=== PATIENT | female | born 1940 | race Caucasian/White ===

== ENCOUNTER → 2017-10-21 | Outpatient (POV) | payer MEDICARE, OTHER, SELFPAY | PROVIDERS: Visit Provider Podiatrist ==

== ENCOUNTER → 2017-11-25 10:51 | Outpatient (POV) | payer MEDICARE, OTHER, SELFPAY | PROVIDERS: PCP Internal Medicine Adolescent Medicine; Visit Provider Podiatrist | DX: Z00.00 Encounter for general adult medical examination without abnormal findings (principal) ==

== ENCOUNTER → 2017-12-09 10:41 | Outpatient (POV) | payer MEDICARE, OTHER, SELFPAY | PROVIDERS: Visit Provider Podiatrist | DX: Z00.00 Encounter for general adult medical examination without abnormal findings (principal) ==

== ENCOUNTER → 2017-12-23 09:10 | Outpatient (POV) | payer MEDICARE, OTHER, SELFPAY | PROVIDERS: PCP Internal Medicine Adolescent Medicine; Visit Provider Podiatrist | DX: Z00.00 Encounter for general adult medical examination without abnormal findings (principal) ==

== ENCOUNTER → 2018-06-09 09:40 | Outpatient (CLI) | payer MEDICARE, OTHER, SELFPAY ==
--- NOTE | 2018-06-09 09:44 | MM_ITS ---
MM Dig screening mamm BI w/CAD ORDERING PHYSICIAN : Juan Rodriguez MD PATIENT AGE: 77 years GENDER: Female COMPARISON: March 2017, January 2016, February 2011 INDICATION: ITS.REASON: SCREENING no hormones. No new complaints. Noncontributory family history TECHNIQUE: Standard CC and MLO images were obtained. R2 CAD reviewed. FINDINGS: Low-density breast with generalized fatty replacement. Minimal residual fibroglandular elements bilateral. Prior films confirm relative stability with no dominant mass nor suspicious calcifications in either breast. Only very minimal Early vascular calcifications on right. IMPRESSION: Stable negative bilateral mammogram. Bilateral follow-up one year recommended BI-RADS Category: 1 Negative RECOMMENDED FOLLOW-UP: 1YR 1 YEAR FOLLOW-UP (A letter has been sent to the patient regarding results of the study.)
--- NOTE | 2018-06-09 09:44 | XR_ITS ---
XR DEXA axial skeleton COMPARISON: None HISTORY: Postmenopausal TECHNIQUE: DEXA scanning lumbar spine and bilateral hips and right radius and ulna FINDINGS: Lumbar spine: There is BMD L1-L4 is 1.394 g/sq cm and the T score is 1.8. 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 Impression: Normal values for lumbar spine left hip and right radius and ulna, consider follow-up study in approximately 2 years IMPRESSION:
== END ==
PROVIDERS: PCP Internal Medicine Adolescent Medicine; Visit Provider Internal Medicine Adolescent Medicine
DX: Z12.31 Encounter for screening mammogram for malignant neoplasm of breast (principal); Z13.820 Encounter for screening for osteoporosis; Z78.0 Asymptomatic menopausal state
CPT/HCPCS: 77067; 77080

== ENCOUNTER → 2018-10-20 10:59 | Outpatient (CLI) | payer MEDICARE, OTHER, SELFPAY ==
--- NOTE | 2018-10-20 11:03 | XR_ITS ---
XR chest 2V HISTORY: ITS.REASON: EXPOSURE TO TB ORDERING PHYSICIAN: Juan Rodriguez MD PATIENT AGE: 78 years COMPARISON: None FINDINGS: The cardiomediastinal silhouette and pulmonary vascularity are within normal limits. The lungs are clear without infiltrates, suspicious nodules, or pleural effusions. No radiographic evidence of active tuberculosis No acute bony abnormalities. IMPRESSION: Negative chest, no acute finding
== END ==
PROVIDERS: PCP Internal Medicine Adolescent Medicine; Visit Provider Internal Medicine Adolescent Medicine
DX: Z20.1 Contact with and (suspected) exposure to tuberculosis (principal)
CPT/HCPCS: 71046

== ENCOUNTER → 2019-04-12 10:03 | Outpatient (CLI) | payer MEDICARE, BC, SELFPAY ==
--- NOTE | 2019-04-12 10:16 | XR_ITS ---
XR knee RT 3V HISTORY: Knee pain ITS.REASON: KNEE ARTHROPATHY ORDERING PHYSICIAN: Emilia Multani APRN PATIENT AGE: 78 years COMPARISON: None FINDINGS: There are mild osteoarthritic changes involving all 3 compartments with slight decrease in the joint space and osteophyte formation. No fracture or dislocation. No lytic or blastic change. 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
== END ==
PROVIDERS: PCP Nurse Practitioner Family; Visit Provider Nurse Practitioner Family
DX: M17.10 Unilateral primary osteoarthritis, unspecified knee (principal)
CPT/HCPCS: 73562

== ENCOUNTER → 2019-10-26 10:13 | Outpatient (CLI) | payer MEDICARE, BC, SELFPAY ==
--- NOTE | 2019-10-26 10:15 | MM_ITS ---
PROCEDURE: MM DIG SCREENING MAMM BI W/CAD Patient Age:79Y CLINICAL INDICATION: SCREENING 79-year-old screening mammogram. No hormones but no new complaints-hysterectomy age 40. Family history noncontributory. COMPARISON: [facility] DIGITAL MAMM-SCREEN BILATERAL from 11/23/2012 [facility] DIG MAMM-SCREEN TENISHA from 06/14/2014 [facility] DIG MAMM-SCREEN TENISHA from 02/05/2016 [facility] DIG MAMM-SCREEN TENISHA W/CAD from 03/14/2017 [facility] MM Dig screening mamm BI w/CAD from 06/09/2018 TECHNIQUE: Standard CC and MLO images were obtained. R2 CAD reviewed. FINDINGS: low-density breast with diffuse fatty replacement.. No dominant or suspicious mass. No architectural distortion no suspicious calcification. Routine follow-up adequate IMPRESSION: Stable bilateral mammogram. No areas of concern either breast Follow-up 1 year recommended Low-density breast with diffuse fatty replacement. BI-RAD Category: 1 Negative FOLLOW-UP: 1YR 1 Year Follow-up the the the (A letter has been sent to the patient regarding results of the study.) Dictated by: Alhaji Silva MD 10/26/2019 13:47 Electronically signed by Alhaji Silva MD in [place] 10/26/2019 13:47
== END ==
PROVIDERS: PCP Nurse Practitioner Family; Visit Provider Internal Medicine Adolescent Medicine
DX: Z12.31 Encounter for screening mammogram for malignant neoplasm of breast (principal)
CPT/HCPCS: 77067

== ENCOUNTER → 2021-02-18 07:52 | Outpatient (CLI) | payer MEDICARE, BC, SELFPAY ==
--- NOTE | 2021-02-18 08:01 | MM_ITS ---
PROCEDURE: MM DIG SCREENING MAMM BI W/CAD Digital Breast Tomosynthesis Included CLINICAL INDICATION: SCREENING There is no personal or family history of breast cancer. COMPARISON: [facility] MM Dig screening mamm BI w/CAD from 06/09/2018 [facility] MM DIG SCREENING MAMM BI W/CAD from 10/26/2019 TECHNIQUE: Standard CC and MLO images and 3D Tomosynthesis was obtained. R2 CAD reviewed. FINDINGS: Mild scattered fibroglandular densities are seen throughout both breasts. There are CAD markings of both breasts with reviewed all appear to be secondary to vascular calcifications. There is a mole marker right breast. There are few benign-appearing microcalcifications in each breast. There is no suspicious lesion in either breast and no suspicious microcalcifications IMPRESSION: Fibrofatty parenchyma with no suspicious lesions seen BI-RAD Category: 2 Benign Finding(s) FOLLOW-UP: 1YR 1 Year Follow-up (A letter has been sent to the patient regarding results of the study.) Dictated by: Dr. Los Robb MD 02/20/2021 10:57 Dr. Los Robb MD in [place] 02/20/2021 10:57
== END ==
PROVIDERS: PCP Internal Medicine Adolescent Medicine; Visit Provider Nurse Practitioner Family
DX: Z12.31 Encounter for screening mammogram for malignant neoplasm of breast (principal)
CPT/HCPCS: 77063; 77067

== ENCOUNTER → 2021-12-22 13:02 | Outpatient (POV) | payer MEDICARE, BC, SELFPAY | PROVIDERS: Visit Provider Dermatology | DX: Z00.00 Encounter for general adult medical examination without abnormal findings (principal) ==

== ENCOUNTER 2022-01-18 10:22 | Emergency (ER) | payer MEDICARE, BC, SELFPAY ==
[2022-01-18 11:46] VITALS: BP 144/78; PULSE 63; RESP 16; TEMP 36.4; O2SAT 95; BMI 39.9
--- NOTE | 2022-01-18 12:28 | HMH.EDUTC ---
[facility] Clinical Impression: Strep throat Disposition: Home, Self-Care Condition on Discharge: Good Instructions: Strep Throat, DI for Strep Throat Additional Instructions: Drink plenty of fluids. Take tylenol or ibuprofen for pain or fever. Take the medications as directed. Follow up with your regular doctor. GO TO THE ER FOR ANY WORSENING SYMPTOMS Throw your tooth brush away and get a new one. Prescriptions: Amoxicillin [Amoxicillin 500mg Tab] 500 mg PO TID 10 Days #30 tab Transmission Status: Received by [facility] Benzonatate [Benzonatate 100mg cap] 100 mg PO TIDP PRN #30 cap PRN Reason: Cough Transmission Status: Received by [facility] methylPREDNISolone [Medrol] 4 mg PO DIRECTED 6 Days #21 packet Transmission Status: Received by [facility] Referrals: Juan Rodriguez MD [Primary Care Provider] - Time of Disposition: 12:30 Medical Decision Making - Medical Records Medical records reviewed: No: I reviewed the patient's medical records. - Sánchez Inquiry Pt receiving controlled substance: No Vital Signs: 01/18/22 11:46 01/18/22 12:46 Temperature 97.6 F 97.6 F Temperature Source Oral Pulse Rate 63 Pulse Rate [Right] 63 Respiratory Rate 16 16 Blood Pressure 144/78 H Blood Pressure [Right Arm] 144/78 H Blood Pressure Mean [Right Arm] 100 02 Sat by Pulse Oximetry 95 - Lab Data Lab results reviewed: Yes: I reviewed the patient's lab results. Lab Results 01/18/22 11:34: Strep Scn [facility] Positive A 01/18/22 12:32: Chlamy pneumoniae PCR Not detected, Adenovirus (PCR) Not detected, B. pertussis DNA (PCR) Not detected, Coronavirus OC43 (PCR) Not detected, Coronavirus HKU1 (PCR) Not detected, Coronavirus 229E (PCR) Not detected, SARS-CoV-2 (PCR) Not detected, Coronavirus NL63 (PCR) Not detected, Human Metapneumovir PCR Not detected, Influenza A (H1) PCR Not detected, Influ A (H1N1/09) PCR Not detected, Influenza A (H3) PCR Not detected, Influenza Type A (PCR) Not detected, Influenza Type B (PCR) Not detected, M. pneumoniae (PCR) Not detected, Parainfluenza 1 (PCR) Not detected, Parainfluenza 2 (PCR) Not detected, Parainfluenza 3 (PCR) Not detected, Parainfluenza 4 (PCR) Not detected, RSV (PCR) Not detected, Entero/Rhino (PCR) Not detected [facility] [place] - General Stated complaint: cough,congested Time Seen by Provider: 01/18/22 11:50 Mode of Arrival: Ambulatory Source of Information: Patient Limitations: No Limitations Description of Symptoms (Recalled from Triage Doc. by RN): pt c/o a sore throat and productive cough x3 days. HEENT Symptoms (Recalled from RN notes): Yes Resp Symptoms (Recalled from RN notes): Yes Skin Symptoms (Recalled from RN notes): No MS Symptoms (Recalled from RN notes): No Functional Status (Recalled from RN notes): wnl - History of Present Illness Provider Complaint: She c/o having a cough and feeling bad for the past 3 days. - Related Data Home Medications Medication Instructions Recorded Confirmed celecoxib 200 mg capsule 200 mg PO DAILY 90 Days cap 12/13/17 10/30/19 losartan 100 mg tablet 100 mg PO QDAY 12/13/17 10/30/19 omeprazole 20 mg capsule,delayed 20 mg PO ONCE 12/13/17 10/30/19 release simvastatin 40 mg tablet 40 mg PO QAM 12/13/17 10/30/19 atenoloL [Atenolol 50mg Tab] 50 mg PO BID 10/30/19 10/30/19 Previous Rx's Medication Instructions Recorded Azithromycin [Z-Fortunato 250mg Tab*] 250 mg PO UD DOSE PK #6 tab 10/30/19 guaiFENesin [Mucinex 600mg tablet] 1 - 2 tab PO BIDP PRN #30 10/30/19 tab.er.12h predniSONE [Prednisone 20mg 20 mg PO BID 4 Days #8 tab 10/30/19 Tab] Albuterol Sulfate [Albuterol HFA 1 - 2 puffs IH Q4-6H PRN #1 inh 11/01/19 Inhaler] Fluticasone Propionate [Flonase 1 - 2 spr NS DAILY #1 bottle 11/01/19 50mcg nasal spray 16gm] Amoxicillin [Amoxicillin 500mg Tab] 500 mg PO TID 10 Days #30 tab 01/18/22 Benzonatate [Benzonatate 100mg 100 mg PO TIDP PRN #3
[2022-01-18 12:46] VITALS: BP 144/78; PULSE 63; RESP 16; TEMP 36.4
[2022-01-18 13:11] LABS: Adenovirus,PCR Not Detected (NotDetected); Bordetella Pertussis Not Detected (NotDetected); Chlamydophila Pneumoniae, PCR Not Detected (NotDetected); Coronavirus 19, PCR Not Detected (NotDetected); Coronavirus 229E Not Detected (NotDetected); Coronavirus NL63 Not Detected (NotDetected); Coronavirus OC43 Not Detected (NotDetected); Coronovirus HKU1,PCR Not Detected (NotDetected); Human Metapneumovirus Not Detected (NotDetected); Influenza A, PCR Not Detected (NotDetected); Influenza AH1, 2009 Not Detected (NotDetected); Influenza AH1, PCR Not Detected (NotDetected); Influenza AH3,PCR Not Detected (NotDetected); Influenza B, PCR Not Detected (NotDetected); Mycoplasma Pneumoniae, PCR Not Detected (NotDetected); Parainfluenza 1, PCR Not Detected (NotDetected); Parainfluenza 2, PCR Not Detected (NotDetected); Parainfluenza 3, PCR Not Detected (NotDetected); Parainfluenza 4, PCR Not Detected (NotDetected); Respiratory Syncytial Virus Not Detected (NotDetected); Rhinovirus/Enterovirus Not Detected (NotDetected)
[2022-01-18 19:05] LABS: UTC Strep Screen (Rapid) Positive (Negative)
== END 2022-01-18 12:47 | disposition home or self-care (01) ==
PROVIDERS: Emergency Provider Nurse Practitioner Family; PCP Internal Medicine Adolescent Medicine
DX: J02.0 Streptococcal pharyngitis (principal); K21.9 Gastro-esophageal reflux disease without esophagitis; M19.90 Unspecified osteoarthritis, unspecified site; G62.9 Polyneuropathy, unspecified; Z20.822 Contact with and (suspected) exposure to COVID-19; Z79.51 Long term (current) use of inhaled steroids; Z79.52 Long term (current) use of systemic steroids; Z79.899 Other long term (current) drug therapy; Z91.040 Latex allergy status; Z88.8 Allergy status to other drugs, medicaments and biological substances; Z82.49 Family history of ischemic heart disease and other diseases of the circulatory system; Z80.9 Family history of malignant neoplasm, unspecified; Z83.438 Family history of other disorder of lipoprotein metabolism and other lipidemia
CPT/HCPCS: 87581; 87632; 87798; 87880; 99213; C9803; G0463; U0003; U0005

== ENCOUNTER → 2022-03-16 14:03 | Outpatient (POV) | payer MEDICARE, BC, SELFPAY | PROVIDERS: Visit Provider Dermatology | DX: Z00.00 Encounter for general adult medical examination without abnormal findings (principal) ==

== ENCOUNTER 2023-07-15 09:32 | Emergency (ER) | payer MEDICARE, BC, SELFPAY ==
[2023-07-15 09:33] VITALS: BP 142/93; PULSE 77; RESP 18; TEMP 37.3; O2SAT 96; BMI 38.2
--- NOTE | 2023-07-15 09:53 | EXP.UTC ---
Discharge Plan Disposition Patient Disposition: Home, Self-Care Condition: Good Prescriptions Prescriptions: New benzonatate 100 mg capsule 100 mg PO TID PRN (Reason: cough) Qty: 30 0RF azithromycin [Zithromax Z-Fortunato] 250 mg tablet See Rx Instructions .ROUTE .COMPLEX 5 Days Qty: 6 0RF Rx Instructions: For 250 mg dose pack: take 500 mg today (day 1), then 250 mg for 4 days (days 2-5) No Action celecoxib 200 mg capsule 200 mg PO DAILY 90 Days Patient Comments: losartan 100 mg tablet 100 mg PO QDAY simvastatin 40 mg tablet 40 mg PO QAM omeprazole 20 mg capsule,delayed release(DR/EC) 20 mg PO ONCE albuterol sulfate 18 GM HFA aerosol inhaler 1 - 2 puffs IH Q4-6H PRN (Reason: Shortness Of Breath Or Wheezing) Qty: 1 0RF fluticasone propionate 120 SPR/BOT bottle 1 - 2 spr NS DAILY Qty: 1 0RF Rx Instructions: each nostril daily atenolol 50 MG tablet 50 mg PO BID azithromycin 250 MG tablet 250 mg PO UD DOSE PK Qty: 6 0RF Rx Instructions: Take two (2) tablets today, then one (1) tablet days #2 thru #5 prednisone 20 MG tablet 20 mg PO BID 4 Days Qty: 8 0RF guaifenesin 600 MG tablet extended release 12hr 1 - 2 tab PO BIDP PRN (Reason: Congestion) Qty: 30 0RF amoxicillin 500 MG tablet 500 mg PO TID 10 Days Qty: 30 0RF benzonatate 100 MG capsule 100 mg PO TIDP PRN (Reason: Cough) Qty: 30 0RF methylprednisolone 4 MG tablets,dose pack 4 mg PO DIRECTED 6 Days Qty: 21 0RF Referrals Follow up/Referrals: Juan Rodriguez MD [Primary Care Provider] - See instructions Activity Restrictions/Add. Instructions Additional Instructions/Restrictions: *Monitor Temp, Over the counter Motrin or Tylenol as directed/as needed Tylenol every 4 hours and Motrin every 6 hours (as long as your family doctor has told you that you can take it) for fever or pain. and straight to ER if unable to lower temp less than 101.0 after medication given *Warm salt water gargles may help to soothe the throat *Throat Lozenges? *Warm fluids like tea with honey may help to soothe the throat? *Sleep elevated *Humidifier/Vaporizer *Flonase 2 sprays in each nostril daily but be aware that it may take 2-3 days before you notice improvement Follow up IMMEDIATELY for new or worsening symptoms or no Noticeable improvement over the next 48-72 hours. 911 for difficulty breathing or swallowing You were tested for today for COVID19 your test result should be back in the next 24-48 hours, you may check your results on the [facility] they will be on there when they are complete Clinical Impressions Clinical Impression: Sinusitis Qualifiers: Sinusitis location: unspecified location Chronicity: unspecified Qualified Code(s): J32.9 - Chronic sinusitis, unspecified Instructions Patient Instructions: Sinusitis, Sinus Headache Discharge ED Provider: Caro Elias [facility] [place] HPI General Stated complaint: congestion, sore throat Mode of Arrival: Ambulatory Source of Information: Patient Limitations: No Limitations Time Seen by Provider: 07/15/23 09:54 Description of Symptoms (Recalled from Triage Doc. by RN): Patient reports being stopped up, cough and fever since yesterday. HEENT Symptoms (Recalled from RN notes): Yes Resp Symptoms (Recalled from RN notes): No Skin Symptoms (Recalled from RN notes): No MS Symptoms (Recalled from RN notes): No Functional Status (Recalled from RN notes): wnl History of Present Illness Provider Complaint: Patient states that she has been having issues with her sinuses on and off States that yesterday she started with worsening of sinus pressure, cough, scratchy throat and felt like she may have had a fever last night but not sure Related Data Home Medications Medication Instructions Recorded Confirmed celecoxib 200 mg capsule 200 mg PO DAILY ARTHRITIS 90 days 12/13/17
[2023-07-15 10:11] VITALS: BP 142/93; PULSE 77; RESP 18; TEMP 37.3; O2SAT 96
== END 2023-07-15 10:12 | disposition home or self-care (01) ==
PROVIDERS: Emergency Provider Nurse Practitioner; PCP Internal Medicine Adolescent Medicine
DX: U07.1 COVID-19 (principal); J01.90 Acute sinusitis, unspecified
CPT/HCPCS: 99212; 99214; G0463

== ENCOUNTER 2023-08-14 10:48 | Emergency (ER) | payer MEDICARE, BC, SELFPAY ==
[2023-08-14 10:58] VITALS: BP 106/87; PULSE 61; RESP 16; TEMP 36.8; O2SAT 96; BMI 38.2
[2023-08-14 11:01] VITALS: BP 157/71; PULSE 59; O2SAT 95
[2023-08-14 11:31] VITALS: BP 145/69; PULSE 53; O2SAT 95
--- NOTE | 2023-08-14 11:44 | PC.NURSE ---
Dr. Seth at [facility] for pt eval
--- NOTE | 2023-08-14 11:47 | CT_ITS ---
PROCEDURE INFORMATION: Exam: CT Maxillofacial Without Contrast Exam date and time: 08/14/2023 12:19 PM Age: 83 years old Clinical indication: Injury or trauma; Fall; Blunt trauma (contusions or hematomas); Orbit/periorbital; Left; Additional info: Fall 08/12 TECHNIQUE: Imaging protocol: Computed tomography of the face without contrast. Radiation optimization: All CT scans at this facility use at least one of these dose optimization techniques: automated exposure control; mA and/or kV adjustment per patient size (includes targeted exams where dose is matched to clinical indication); or iterative reconstruction. REPORTING DATA: Count of CT and Cardiac NM exams in prior 12 months: This patient has received 0 known CTs and 0 known cardiac nuclear medicine studies in the 12 months prior to the current study. COMPARISON: CT HEAD/BRAIN WO CON 08/14/2023 12:16 PM FINDINGS: Orbital cavities: Orbits are normal. Globes are unremarkable. Bones/joints: Asymmetric osteoarthritic changes are seen at the left temporomandibular joint. There is no evidence of acute fracture. Paranasal sinuses: Normal. No air-fluid levels. Soft tissues: There is left periorbital soft tissue swelling. IMPRESSION: No evidence of acute fracture.
--- NOTE | 2023-08-14 11:47 | CT_ITS ---
PROCEDURE INFORMATION: Exam: CT Head Without Contrast Exam date and time: 08/14/2023 12:16 PM Age: 83 years old Clinical indication: Injury or trauma; Fall; Blunt trauma (contusions or hematomas); Consciousness not specified; Additional info: Fall 08/12 TECHNIQUE: Imaging protocol: Computed tomography of the head without contrast. Radiation optimization: All CT scans at this facility use at least one of these dose optimization techniques: automated exposure control; mA and/or kV adjustment per patient size (includes targeted exams where dose is matched to clinical indication); or iterative reconstruction. REPORTING DATA: Count of CT and Cardiac NM exams in prior 12 months: This patient has received 0 known CTs and 0 known cardiac nuclear medicine studies in the 12 months prior to the current study. COMPARISON: No relevant prior studies available. FINDINGS: Brain: There is mild small vessel disease. There is no evidence of acute parenchymal hemorrhage, extra-axial collection, or acute infarction. There is no mass effect, midline shift, or downward herniation. Cerebral ventricles: No ventriculomegaly. Paranasal sinuses: Visualized sinuses are unremarkable. No fluid levels. Mastoid air cells: Visualized mastoid air cells are well aerated. Bones/joints: Unremarkable. No acute fracture. Soft tissues: There is left periorbital soft tissue swelling. IMPRESSION: Mild small vessel disease. No evidence of acute intracranial process.
[2023-08-14 12:01] VITALS: BP 165/70; PULSE 51; O2SAT 95
--- NOTE | 2023-08-14 12:02 | HMH.EDGENADL ---
Discharge Plan Disposition Patient Disposition: Home, Self-Care Prescriptions Prescriptions: No Action celecoxib 200 mg capsule 200 mg PO DAILY 90 Days Patient Comments: losartan 100 mg tablet 100 mg PO QDAY simvastatin 40 mg tablet 40 mg PO QAM omeprazole 20 mg capsule,delayed release(DR/EC) 20 mg PO ONCE albuterol sulfate 18 GM HFA aerosol inhaler 1 - 2 puffs IH Q4-6H PRN (Reason: Shortness Of Breath Or Wheezing) Qty: 1 0RF fluticasone propionate 120 SPR/BOT bottle 1 - 2 spr NS DAILY Qty: 1 0RF Rx Instructions: each nostril daily atenolol 50 MG tablet 50 mg PO BID azithromycin 250 MG tablet 250 mg PO UD DOSE PK Qty: 6 0RF Rx Instructions: Take two (2) tablets today, then one (1) tablet days #2 thru #5 prednisone 20 MG tablet 20 mg PO BID 4 Days Qty: 8 0RF guaifenesin 600 MG tablet extended release 12hr 1 - 2 tab PO BIDP PRN (Reason: Congestion) Qty: 30 0RF amoxicillin 500 MG tablet 500 mg PO TID 10 Days Qty: 30 0RF benzonatate 100 MG capsule 100 mg PO TIDP PRN (Reason: Cough) Qty: 30 0RF methylprednisolone 4 MG tablets,dose pack 4 mg PO DIRECTED 6 Days Qty: 21 0RF benzonatate 100 mg capsule 100 mg PO TID PRN (Reason: cough) Qty: 30 0RF azithromycin [Zithromax Z-Fortunato] 250 mg tablet See Rx Instructions .ROUTE .COMPLEX 5 Days Qty: 6 0RF Rx Instructions: For 250 mg dose pack: take 500 mg today (day 1), then 250 mg for 4 days (days 2-5) Referrals Follow up/Referrals: Juan Rodriguez MD [Primary Care Provider] - See instructions Activity Restrictions/Add. Instructions Additional Instructions/Restrictions: Call your family doctor to establish care for this visit to the emergency department and schedule follow-up within 48 hours to ensure improvement. If you have any worsening of your condition or any other concerning signs or symptoms, return to the emergency department or your primary care doctor for further evaluation. Clinical Impressions Clinical Impression: Periorbital ecchymosis of left eye, Hematoma of frontal scalp Discharge ED Provider: Chauncey Seth General Adult HPI General Chief complaint: Fall Stated complaint: AO 08/12 fall blackeye Time Seen by Provider: 08/14/23 10:57 Mode of Arrival: Ambulatory Source of Information: Patient Limitations: No Limitations Description of Symptoms (Recalled from ER Triage Doc. by RN): 83 yo F presents to ED with c/o fall. pt had fall tuesday morning. pt states that she was getting out bed and slipped and fell hitting her face. pt reports - LOC. pt does take asa81 mg daily. no neck pain, stiffness. pt reports brusing getting worse. History of Present Illness HPI narrative: 83-year-old female with history of hypertension, hyperlipidemia, chronic bronchitis presenting with fall. Patient fell 1 day prior to arrival 08/13 at 2 AM after stepping out of bed and slipping on the hardwood floor. Struck her face. No loss of consciousness. Patient had a hematoma above her left eyebrow, today, has ecchymoses around her left eye. No vision changes and patient able to open eye, but concerned about the bruising. Denies any other trauma, neurologic deficits. Related Data Home Medications Medication Instructions Recorded Confirmed celecoxib 200 mg capsule 200 mg PO DAILY ARTHRITIS 90 days 12/13/17 10/30/19 losartan 100 mg tablet 100 mg PO QDAY Hypertension 12/13/17 10/30/19 omeprazole 20 mg capsule,delayed 20 mg PO ONCE GERD 12/13/17 10/30/19 release simvastatin 40 mg tablet 40 mg PO QAM Cholesterol 12/13/17 10/30/19 atenolol 50 mg tablet 50 mg PO BID Hypertension 10/30/19 10/30/19 Previous Rx's Medication Instructions Recorded azithromycin 250 mg tablet 250 mg PO UD DOSE PK #6 tabs 10/30/19 guaifenesin 600 mg tablet, 1 - 2 tab PO BIDP PRN Congestion 10/30/19 extended release 12 hr ##30 prednisone 20 mg tablet 20 mg PO BID 4 days #8 tabs 10/30/19 albuterol s
--- NOTE | 2023-08-14 12:13 | PC.NURSE ---
Pt gone to RAD via stretcher
--- NOTE | 2023-08-14 12:22 | PC.NURSE ---
Pt returned from RAD
--- NOTE | 2023-08-14 12:36 | PC.NURSE ---
Rounded on pt. Pt provided with warm blanket. No other needs voiced.
[2023-08-14 12:48] VITALS: BP 150/77; PULSE 60; RESP 20; TEMP 36.8; O2SAT 97
== END 2023-08-14 12:50 | disposition home or self-care (01) ==
PROVIDERS: Emergency Provider Emergency Medicine; PCP Internal Medicine Adolescent Medicine
DX: S00.12XA Contusion of left eyelid and periocular area, initial encounter (principal); S00.93XA Contusion of unspecified part of head, initial encounter; I10 Essential (primary) hypertension; E78.5 Hyperlipidemia, unspecified; J41.0 Simple chronic bronchitis; W06.XXXA Fall from bed, initial encounter
CPT/HCPCS: 70450; 70486; 99285

== ENCOUNTER 2024-01-09 09:51 | Emergency (ER) | payer MEDICARE, BC, SELFPAY ==
[2024-01-09 10:10] VITALS: BP 114/78; PULSE 74; RESP 18; TEMP 36.8; O2SAT 98; BMI 38.2
--- NOTE | 2024-01-09 10:22 | ED_ITS ---
Discharge Plan Disposition Patient Disposition: Home, Self-Care Condition: Good Prescriptions Prescriptions: New azithromycin [Zithromax Z-Fortunato] 250 mg tablet See Rx Instructions .ROUTE .COMPLEX 5 Days Qty: 6 0RF Rx Instructions: For 250 mg dose pack: take 500 mg today (day 1), then 250 mg for 4 days (days 2-5) benzonatate 100 mg capsule 100 mg PO TID PRN (Reason: cough) Qty: 30 0RF guaifenesin [Mucinex] 600 mg tablet extended release 12hr 600 mg PO BID PRN (Reason: cough) Qty: 20 0RF No Action citalopram 10 mg tablet 10 mg PO DAILY famotidine 40 mg tablet 40 mg PO DAILY losartan-hydrochlorothiazide 100-25 mg tablet 1 tab PO DAILY allopurinol 300 mg tablet 300 mg PO DAILY furosemide 20 mg tablet 20 mg PO DAILY atenolol 50 mg tablet 50 mg PO DAILY rosuvastatin 10 mg tablet 10 mg PO DAILY Referrals Follow up/Referrals: Juan Rodriguez MD [Primary Care Provider] - See instructions Activity Restrictions/Add. Instructions Additional Instructions/Restrictions: * Start antibiotic today. Be sure to complete entire prescription even if feeling better * Monitor temp. Tylenol every 4 hours as needed and / or ibuprofen every 6 hours as needed ( As long as your primary care physician has told you that it ok to take both. For fever/aches/pains ER if no less than 101 despite Tylenol or Motrin * Humidifier/vaporizer or hot steamy shower * Mucinex during the day for your cough and cough suppressant only at night. Be sure to drink lots of water. Insurance may not cover a prescriptions for mucinex. Might be cheaper to get 400mg tablets and take 2 tablet in the morning, mid-day and evening with lots of water. *Tessalon Perles will not cause drowsiness but use at bedtime to help stop cough so that you may get some rest Follow up IMMEDIATELY for new or worsening of symptoms OR no noticeable improvement over the next 48-72 hours. 911 immediately for any life threatening symptoms such as chest pain or difficulty breathing Clinical Impressions Clinical Impression: Bronchitis Sinusitis Qualifiers: Sinusitis location: unspecified location Chronicity: unspecified Qualified Code(s): J32.9 - Chronic sinusitis, unspecified Instructions Patient Instructions: Sinusitis, Acute Bronchitis Discharge ED Provider: Caro Elias [facility] HPI General Stated complaint: congestion Mode of Arrival: Ambulatory Source of Information: Patient Limitations: No Limitations Time Seen by Provider: 01/09/24 10:22 Description of Symptoms (Recalled from Triage Doc. by RN): PATIENT C/O CHEST CONGESTION SINCE TUESDAY HEENT Symptoms (Recalled from RN notes): Yes Resp Symptoms (Recalled from RN notes): Yes Skin Symptoms (Recalled from RN notes): No MS Symptoms (Recalled from RN notes): No Functional Status (Recalled from RN notes): WNL History of Present Illness Provider Complaint: Patient states that she has been having throat irritation, drainage in the back of her throat, cough and feels like it is trying to move into her chest area States that she woke up today with scratchy voice States feels like what she had last times she came in Related Data Home Medications Medication Instructions Recorded Confirmed allopurinol 300 mg tablet 300 mg PO DAILY 01/09/24 01/09/24 atenolol 50 mg tablet 50 mg PO DAILY 01/09/24 01/09/24 citalopram 10 mg tablet 10 mg PO DAILY 01/09/24 01/09/24 famotidine 40 mg tablet 40 mg PO DAILY 01/09/24 01/09/24 furosemide 20 mg tablet 20 mg PO DAILY 01/09/24 01/09/24 losartan 100 1 tab PO DAILY 01/09/24 01/09/24 mg-hydrochlorothiazide 25 mg tablet rosuvastatin 10 mg tablet 10 mg PO DAILY 01/09/24 01/09/24 Previous Rx's Medication Instructions Recorded azithromycin 250 mg tablet See Rx Instructions PO .COMPLEX 5 01/09/24 (Zithromax Z-Fortunato) days #6 tabs benzonatate 100 mg capsule 100 mg PO TID PRN cough #30 caps 01/09/24 guaifenesin 600 mg tablet, 600 mg PO BID PRN cough #20 tabs 01/09/24 extended release 12 hr (Mucinex) Allergies Allergy/AdvReac Type Severity Reaction Status Date / Time latex [LATEX] Allergy Unknown I-RASH Verified 11/01/19 18:09 nitrofurantoin Allergy Unknown Verified 11/01/19 18:09 [From MACRODANTIN] Lisinopril AdvReac Mild Cough Uncoded 02/07/18 13:00 Worker's Comp Is this a Worker's Comp case?: No [facility] Disclaimer: The information contained in this section may have been updated after the patient was seen, as this information can be updated by other users. Social History Smoking Status: Never smoker second hand exposure: No alcohol intake: never counseling provided: none current occupational status: retired Travel in the last 8 weeks: None housing: house ROS Obtained: Yes All systems reviewed & no additional complaints except as documented and Yes Systems reviewed as appropriate & no additional complaints except as documented Constitutional Constitutional: Reports system reviewed and no additional complaints, except as documented, Reports as per HPI and Denies fever(s) ENT Ears, Nose, Mouth, and Throat: Reports system reviewed and no additional complaints, except as documented, Reports as per HPI, Reports nasal congestion, Reports sinus pressure and Reports sore throat Cardiovascular Cardiovascular: Reports system reviewed and no additional complaints, except as documented and Reports as per HPI Respiratory Respiratory: Reports system reviewed and no additional complaints, except as documented, Reports as per HPI, Denies shortness of breath, Reports chest congestion and Reports cough Gastrointestinal Gastrointestingal: Reports system reviewed and no additional complaints, except as documented and as per HPI Physical Exam General General appearance: alert and in no apparent distress ENT ENT exam: Present mucous membranes moist Expanded ENT Exam Nose exam: Present sinus tenderness Throat exam: Present other (Pharyngeal erythema noted with PND) Respiratory Respiratory exam: Present normal lung sounds bilaterally; Absent respiratory distress or wheezes Cardiovascular Cardiovascular exam: Present regular rate, normal rhythm and normal heart sounds Abdominal Exam Abdominal exam: Present soft and normal bowel sounds; Absent distention or tenderness Neurological Exam Neurological exam: Present alert, oriented X3 and normal gait Medical Decision Making Sánchez Inquiry Pt receiving controlled substance: No Sánchez was queried for this patient: No Vital Signs: 01/09/24 10:10 Temperature 98.3 F Temperature Source Oral Pulse Rate [Left Brachial] 74 Respiratory Rate 18 Blood Pressure [Left Arm] 114/78 Blood Pressure Mean [Left Arm] 90 Blood Pressure Source [Left Arm] Automatic Cuff Blood Pressure Position [Left Arm] Sitting 02 Sat by Pulse Oximetry 98 Oxygen Delivery Method Room Air Medical Decision Narrative: Patient states that she has take azithromcyin in the past without complications or reactions
[2024-01-09 10:30] VITALS: BP 114/78; PULSE 74; RESP 18; TEMP 36.8; O2SAT 98
== END 2024-01-09 10:33 | disposition home or self-care (01) ==
PROVIDERS: Emergency Provider Nurse Practitioner; PCP Internal Medicine Adolescent Medicine
DX: J20.9 Acute bronchitis, unspecified (principal); J01.90 Acute sinusitis, unspecified; R07.0 Pain in throat; R09.82 Postnasal drip; R05.9 Cough, unspecified
CPT/HCPCS: 99212; 99214; G0463

== ENCOUNTER 2024-06-22 09:05 | Emergency (ER) | payer MEDICARE, BC, SELFPAY ==
--- NOTE | 2024-06-22 09:11 | XR_ITS ---
FINAL REPORT CLINICAL HISTORY: Right shoulder pain- fall COMPARISON: None FINDINGS: RIGHT SHOULDER: 3 views of the right shoulder were obtained. There is no acute fracture or dislocation. There is mild AC joint degenerative change. There is mild widening of the AC joint and AC separation is not excluded. There is no soft tissue abnormality. IMPRESSION: No acute bony abnormality. Mild widening of the AC joint, AC separation not excluded. Reviewed, Interpreted and Dictated by Gideon Silva III, MD Transcribed by Tiki Aleman Authenticated and . [facility]
--- NOTE | 2024-06-22 09:13 | XR_ITS ---
FINAL REPORT CLINICAL HISTORY: Right humerus pain- fall COMPARISON: None FINDINGS: Two views of the right humerus were obtained. There is no acute fracture or dislocation. Mild degenerative changes are noted in the shoulder. There is no acute soft tissue abnormality. IMPRESSION: No acute abnormality identified. Reviewed, Interpreted and Dictated by Gideon Silva III, MD Transcribed by Tiki Aleman Authenticated and [facility]
[2024-06-22 09:23] VITALS: BP 140/50; PULSE 60; RESP 16; TEMP 36.5; O2SAT 97; BMI 38.2
--- NOTE | 2024-06-22 09:30 | ED_ITS ---
Discharge Plan Disposition Patient Disposition: Home, Self-Care Condition: Good Prescriptions Prescriptions: No Action citalopram 10 mg tablet 10 mg PO DAILY famotidine 40 mg tablet 40 mg PO DAILY losartan-hydrochlorothiazide 100-25 mg tablet 1 tab PO DAILY allopurinol 300 mg tablet 300 mg PO DAILY furosemide 20 mg tablet 20 mg PO DAILY atenolol 50 mg tablet 50 mg PO DAILY rosuvastatin 10 mg tablet 10 mg PO DAILY azithromycin [Zithromax Z-Fortunato] 250 mg tablet See Rx Instructions .ROUTE .COMPLEX 5 Days Qty: 6 0RF Rx Instructions: For 250 mg dose pack: take 500 mg today (day 1), then 250 mg for 4 days (days 2-5) benzonatate 100 mg capsule 100 mg PO TID PRN (Reason: cough) Qty: 30 0RF guaifenesin [Mucinex] 600 mg tablet extended release 12hr 600 mg PO BID PRN (Reason: cough) Qty: 20 0RF Referrals Follow up/Referrals: Donal Lerner DO [Staff Physician] - See instructions Juan Rodriguez MD [Primary Care Provider] - See instructions Activity Restrictions/Add. Instructions Additional Instructions/Restrictions: Rest the extremity, apply ice for 15 minutes as tolerated three or four times per day, Elevate the extremity as tolerated while you are resting. Take tylenol or ibuprofen (if you can take this) for pain. Follow up with Dr. Lerner (orthopedics). I put in a referral but you need to call his office and schedule an appointment. Follow up with your regular doctor. GO TO THE ER FOR ANY WORSENING SYMPTOMS Clinical Impressions Clinical Impression: Pain in right shoulder, Pain in right arm Instructions Patient Instructions: DI for Shoulder Pain Print Language Print Language: Serbian Discharge ED Provider: Chandu Barlow [facility] HPI General Stated complaint: AO 06/22/24 08:00, fell inj right shoulder Mode of Arrival: Ambulatory Source of Information: Patient Limitations: No Limitations Time Seen by Provider: 06/22/24 09:30 Description of Symptoms (Recalled from Triage Doc. by RN): Patient states she fell this morning and landed on her right shoulder. HEENT Symptoms (Recalled from RN notes): No Resp Symptoms (Recalled from RN notes): No Skin Symptoms (Recalled from RN notes): No MS Symptoms (Recalled from RN notes): Yes Functional Status (Recalled from RN notes): wnl Related Data Home Medications ?Medication ?Instructions ?Recorded ?Confirmed allopurinol 300 mg tablet 300 mg PO DAILY 01/09/24 01/09/24 atenolol 50 mg tablet 50 mg PO DAILY 01/09/24 01/09/24 citalopram 10 mg tablet 10 mg PO DAILY 01/09/24 01/09/24 famotidine 40 mg tablet 40 mg PO DAILY 01/09/24 01/09/24 furosemide 20 mg tablet 20 mg PO DAILY 01/09/24 01/09/24 losartan 100 1 tab PO DAILY 01/09/24 01/09/24 mg-hydrochlorothiazide 25 mg tablet rosuvastatin 10 mg tablet 10 mg PO DAILY 01/09/24 01/09/24 Previous Rx's ?Medication ?Instructions ?Recorded azithromycin 250 mg tablet See Rx Instructions PO .COMPLEX 5 01/09/24 (Zithromax Z-Fortunato) days #6 tabs benzonatate 100 mg capsule 100 mg PO TID PRN cough #30 caps 01/09/24 guaifenesin 600 mg tablet, 600 mg PO BID PRN cough #20 tabs 01/09/24 extended release 12 hr (Mucinex) Allergies Allergy/AdvReac Type Severity Reaction Status Date / Time latex [LATEX] Allergy Unknown I-RASH Verified 11/01/19 18:09 nitrofurantoin Allergy Unknown Verified 11/01/19 18:09 [From MACRODANTIN] Lisinopril AdvReac Mild Cough Uncoded 02/07/18 13:00 Worker's Comp Is this a Worker's Comp case?: No [facility] Disclaimer: The information contained in this section may have been updated after the patient was seen, as this information can be updated by other users. Social History Smoking Status: Never smoker second hand exposure: No alcohol intake: never counseling provided: none current occupational status: retired Travel in the last 8 weeks: None housing: house ROS Obtained: Yes All systems reviewed & no additional complaints except as documented Constitutional Constitutional: Denies chills, Denies fever(s) and Denies weakness Eyes Eyes: Denies eye discharge ENT Ears, Nose, Mouth, and Throat: Denies dizziness, Denies otalgia, Denies neck pain and Denies sore throat Cardiovascular Cardiovascular: Denies chest pain Respiratory Respiratory: Denies shortness of breath, Denies chest congestion, Denies cough, Denies stridor and Denies wheezing Gastrointestinal Gastrointestingal: Denies nausea or vomiting Musculoskeletal Musculoskeletal: Reports as per HPI, Denies back pain, Denies neck pain and Denies numbness Integumentary/Breasts Skin/Breast: Denies redness, Denies rash and Denies wounds Neurologic Neurologic: Denies dizziness, Denies numbness, Denies paresthesias, Denies radicular pain and Denies weakness Allergic/Immunologic Allergic/Immunologic: Denies wheezing Physical Exam General General appearance: alert and in no apparent distress Head Head exam: atraumatic, normocephalic and normal inspection Eye Eye exam: Present normal appearance, PERRL and EOMI ENT ENT exam: Present normal exam, normal oropharynx, mucous membranes moist, TM's normal bilaterally and normal external ear exam Neck Neck exam: Present normal inspection, full ROM and trachea midline; Absent meningismus or lymphadenopathy Chest Chest inspection: Present normal inspection and symmetric chest wall rise; Absent tenderness Respiratory Respiratory exam: Present normal lung sounds bilaterally; Absent respiratory distress Cardiovascular Cardiovascular exam: Present regular rate and normal rhythm; Absent JVD Abdominal Exam Abdominal exam: Present soft and normal bowel sounds; Absent distention, tenderness or guarding Extremities Exam Extremities exam: Present normal inspection, full ROM and normal capillary refi ll; Absent calf tenderness Back Exam Back exam: Present normal inspection; Absent tenderness Neurological Exam Neurological exam: Present alert and oriented X3 Psychiatric Psychiatric exam: Present normal affect and normal mood Skin Skin exam: Present warm, dry, intact and normal color Lymphatic Lymphatic Findings: no adenopathy Medical Decision Making Medical Records Medical records reviewed: No I reviewed the patient's medical records. Sánchez Inquiry Pt receiving controlled substance: No Vital Signs: 06/22/24 09:23 Temperature 97.7 F Temperature Source Oral Pulse Rate [Radial] 60 Respiratory Rate 16 Blood Pressure [Right Arm] 140/50 L Blood Pressure Mean [Right Arm] 80 Blood Pressure Source [Right Arm] Automatic Cuff Blood Pressure Position [Right Arm] Sitting 02 Sat by Pulse Oximetry 97 Oxygen Delivery Method Room Air Orders (Tests/Meds): ORDERS Category Date Time Status XR humerus RT Stat Exams 06/22/24 09:13 Ordered XR shoulder RT min 2V Stat Exams 06/22/24 09:11 Ordered Procedures Risk/Benefits of Procedure(s) Were Explained: Yes Orthopedic Splinting/Casting Injury #1: Side: right Upper Extremity Injury Location: shoulder Upper Extremity Immobilizer: sling and applied by nurse/dr florian Post Cast/Splinting Neuro Status: intact and no change Post Cast/Splinting Vasc Status: intact and no change
[2024-06-22 11:04] VITALS: BP 140/50; PULSE 60; RESP 16; TEMP 36.5; O2SAT 97
== END 2024-06-22 11:05 | disposition home or self-care (01) ==
PROVIDERS: Emergency Provider Nurse Practitioner Family; PCP Internal Medicine Adolescent Medicine
DX: M25.511 Pain in right shoulder (principal); M79.621 Pain in right upper arm; W19.XXXA Unspecified fall, initial encounter
CPT/HCPCS: 73030; 73060; 99212; 99213; G0463

== ENCOUNTER 2025-04-09 08:54 | Outpatient (CLI) | payer MEDICARE, BC, SELFPAY ==
--- OUTSIDE RECORDS SUMMARY | 2025-04-09 08:57 | XMS_ITS | Data Portability ---
Author Organization [facility] Address [address] [place] [address] Care Team Providers Care Corporate Licensed Broker Name Role Phone CODEY GILL Primary Care Provider SPENCER NORMAN Cathead Operator Assessment No assessment recorded. Plan of Treatment Reminders Order Date Submit Date Provider Last Modified By Organization Details Last Modified Time Details Appointments LEVEL 2 2024 02:30P M SPENCER NORMAN MD Not available Not available Not available Lab None recorded. Referral None recorded. Procedures None recorded. Surgeries None recorded. Imaging None recorded. Medication Orders erythromy elvin 5 mg/gram (0.5 %) eye ointment 2022 023 [facility], [address], [address], [place], [address], 04/04/2023 15:24:28 Patient TargetsNo targets recorded. Patient Instructions Encounter Date Encounter Id Patient Instructions Last Modified By Organization Details Last Modified Time 01/12/2021 [id number] learning about vitreous detachment [email or web address] Not available 01/12/2021 11:25:16 Reason for Referral None Reported. Problems Name Problem SNOMED Code Status Onset Date Resolution Date Notes Provider Name and Address Organization Details Recorded Time Polymyalgia 89218234 Active 2020 Scottie anders [facility] 10:39:31 Gout 46241554 Active 2020 Scottie anders [facility] 10:39:35 Neuropathy 415792384 Active 2020 Scottie anders [facility] 10:39:43 Arthritis 4781860 Active 2020 Scottie June [facility] 10:39:48 Pseudophakia 73025483 Active 2020 Scottie June [facility] 10:39:54 Problem Notes None recorded. Procedures Surgical History Date Name Laterality Status Provider Name and Address Organization Details Recorded Time Cataract (right) removal with iol completed [facility] 01/12/2021 10:40:29 Cataract (left) removal with iol completed [facility] 01/12/2021 10:40:34 Total hysterectomy completed [facility] 01/12/2021 10:40:50 ligation of fallopian tube completed [facility] 01/12/2021 10:40:58 Imaging Results None recorded. Procedure Notes None recorded. Medical Equipment None Reported. Allergies Allergen ID Allergen Name Allergen Category Reaction Reaction Severity Criticality Documentation Date Start Date Code Code System Note Provider Name and Address Organization Details Recorded Time 019333 Macrodant in medicatio n Not available Not available Not available 01/12/202120295 4 RxNorm Scottiebhavani June [facility] 10:36:14 762557 latex environme nt,medica tion Not available Not available Not available 01/12/2021 33002 91 RxNorm Scottiebhavani June [facility] 10:39:00 Medications Name Sig Start Date Stop Date Status Note LastModified by Organization Details LastModified Time celecoxib 200 mg capsule Take 1 capsule every day by oral route. active Not Available Not Available No t Available losartan 100 mg-hydrochloro thiazide 25 mg tablet Take 1 tablet every day by oral route. active Not Available Not Available No t Available alprazolam 0.5 mg tablet Take 1 tablet as needed by oral route. active Not Available Not Available No t Available erythromycin 5 mg/gram (0.5 %) eye ointment small amount left eye at bedtime 2022 active Not Available Not Available Not Avai lable allopurinol 300 mg tablet Take 1 tablet every day by oral route. active Not Available Not Available No t Available furosemide 20 mg tablet Take 1 tablet every day by oral route. active Not Available Not Available No t Available atenolol 50 mg tablet Take 1 tablet twice a day by oral route. active Not Available Not Available No t Available escitalopram 10 mg tablet Take 1 tablet every day by oral route. active Not Available Not Available No t Available rosuvastatin 10 mg tablet Take 1 tablet every day by oral route. active Not Available Not Available No t Available vitamin B complex active Not Available Not Available Not Available omeprazole 20 mg tablet,delayed release Take by oral route. active Not Available Not Available No t Available Vitamin D2 active Not Available Not Av ailable Not Available Adult Aspirin Regimen 81 mg tablet,delayed release Take 1 tablet every day by oral route. active Not Available Not Available No t Available Vitals Date Recorded Body height Body mass index (BMI) Body weight Provider Name and Address Organization Details Last Updated DateTime 01/12/2021 162.56 cm 39.5 kg/m2 734750.25 g Scottie Slade [facility] 01/12/2021 10:36:05 Social History None recorded. Functional Status None recorded. Mental Status None recorded. Family History Relationship Description Onset Age of this Age Resolved Age Notes LastModified by Organization Details LastModified Time Mother Cataract [email or web address] Not available 01/12/2021 10:40:07 Medical History Condition Response Glasses/Contacts Y Gynecological HistoryNo gynecological history recorded. Obstetrics History GPAL:G 0 P 0 0 0 0 Past Encounters Encounter ID Performer Location Encounter Start Date Encounter Closed Date Diagnosis/Indication Diagnosis SNOMED-CT Code Diagnosis ICD10 Code Diagnosis Note [id number] SPENCER NORMAN MD [facility] [address] [place] [address] [id number] 5 01/12/2021 10:16:35 01/12/2021 11:48:21 Pseudophakia 52908915 Z96.1 mr paula for glasses Posterior vitreous detachment 654320786 H43.819 Discussed vitreous detachment with the patient. I discussed the patient monitoring for increasing flashes/fl oater/nieves ge in vision and to call immediatel y for any change in the vision. 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 if allergies or infectious rec hcs bidcall with recurrence art tears prn [id number] SPENCER NORMAN MD [facility] [address] [place] [id number] 5 04/04/2023 13:59:14 04/04/2023 15:21:28 Blepharitis 98278464 H01.009 emycin angela qhs x few weekshcs bidart tears prn [id number] SPENCER NORMAN MD [facility] [address] ,[address] [place] [address] 5 04/28/2023 12:32:49 04/28/2023 14:17:23 Pseudophakia 94482506 Z96.1 mr today Nevus of choroid 4585750 02 D31.31 low risk right eye rec yearly check Posterior vitreous detachment 962746997 H43.819 Discussed vitreous detachment with the patient. I discussed the patient monitoring for increasing flashes/fl oater/nieves ge in vision and to call immediatel y for any change in the vision. Health Concerns Section Related Observation LastModified by Organization Detai ls LastModified Time None Recorded Concern Status LastModified by Organization Details LastModified Time None Recorded Advance Directives Directive None Recorded Payers Insurance Date Sequence Insurance Name Policy Number Policy Palomares Covered Member ID Palomares Member ID Guarantor Name 08/27/2024 2 [place] [id number] B W Dayron [id number] Flora Padgett 08/27/2024 1 [employer] (MEDICARE REPLACEMENT/A DVANTAGE - PPO) [id number] Flora Padgett [id number] Flora Padgett 12/20/2023 3 [place] [id number] Ada e Dayron [id number] Flora Dayron 10/03/2023 3 [place] [id number] B W W Dayron [id number] Flora Dayron 09/13/2023 2 [place]INDEMNITY) [id number] Flora Dayron [id number] Flora Dayron Notes Date Note Type Note Provider Name and Address Organization Details Recorded Time 01/12/2021 text/html 80 WF W/BORDERLI NE DM COMP 1. PT STATES SHE IS BORDERLINE DM // DR GILL 2. HX OF CE OU 3. VISION IS CLEAR 4. HAS A FRECKLE ON 1 EYE 5. OU WATERY MC doing well no new problems new mr paula SPENCER NORMAN MD [facility] [place], [address], [facility] 01/12/2021 11:26:59 04/22/2022 text/html 81 yo wf w/ pseudophakia returns for 1 year complete1. Vision occ gets blurry when reading, has to blink a few times then it clears up2. C/o watering OU3. s/p iol ou4. Borderline DM // A1c ? // Dr. Gillgtts: nonecb blurry vision when reading SPENCER NORMAN MD [facility] [place], [address], [facility] 04/22/2022 14:08:10 OBGyn Episode No OBEpisode recorded.
--- NOTE | 2025-04-09 08:58 | XR_ITS ---
FINAL REPORT TECHNIQUE: 5 views CLINICAL HISTORY: LT SIDE SCIATICA COMPARISON: None FINDINGS: AP, oblique and lateral views of the lumbar spine were obtained. There is no prior exam for comparison. There is no acute fracture or malalignment. Vertebral body height is preserved. There is disc space narrowing at the L3-4 level with endplate sclerosis present. Marked facet hypertrophy is noted in the lower lumbar spine. A total hip arthroplasty is noted on the right. No acute paraspinal abnormality. IMPRESSION: Disc space narrowing at the L3-4 level, with marked facet hypertrophy in the lower lumbar spine. Reviewed, Interpreted and Dictated by Deandre Orellana MD Transcribed by Donna Matias Authenticated and [facility]
== END 2025-04-09 23:59 | disposition home or self-care (01) ==
LOC: RAD 08:55
PROVIDERS: PCP Nurse Practitioner Family; Visit Provider Nurse Practitioner Family
DX: M48.061 Spinal stenosis, lumbar region without neurogenic claudication (principal); M47.26 Other spondylosis with radiculopathy, lumbar region
CPT/HCPCS: 72110

== ENCOUNTER 2025-05-09 08:00 | Outpatient (RCR) | payer MEDICARE, BC, SELFPAY ==
--- NOTE | 2025-04-25 11:51 | HMH.PTOPEV ---
PT Outpatient Evaluation Rehab PT Outpatient Evaluation Start: 04/25/25 10:38 Freq: Status: Active Protocol: Document 04/25/25 10:43 JUAN MIGUEL (Rec: 04/25/25 11:48 JUAN MIGUEL [id number]) E-signed By Maria Isabel Samuels, PT Outpatient Therapy Subjective History Subjective History Pt is a 84 y/o female who reports low back pain and sciatica for several years. Pt reports worsening of symptoms a few months ago without known trauma or injury. Pt reports symptoms of left>right central low back pain that intermittently radiates to the left posterior leg to the knee. Pt denies more distal LE symptoms. Pt reports bilateral feet paresthesia due to neuropathy. Pt reports pain is worse in the morning time and aggravated by prolonged standing and walking. Pt had a lumbar spine xray on 04/09/25 with impression of Disc space narrowing at the L3-4 level, with marked facet hypertrophy in the lower lumbar spine. Pt reports since having her R hip replaced in 2014 she feels unlevel when she walks making her hobble. Pt also reports L ankle pain and has been told she needs to have it replaced, states she feels like she doesn't put as much weight on the left leg due to this. Pt denies use of an AD for household ambulation, but states she uses a SPC for community ambulation. Pt denies recent falls, but states she feels off balance on uneven [place]. 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 Chief Complaint Pain Symptom Type Ache,Sharp,Burning Symptoms Relieved By Rest/Positioning Symptoms Aggravated Standing,Physical Activity,Walking,Lifting By Current Functional Lifting,Housework,Standing,Walking,Stairs,Balance Limitations Symptom Description Intermittent Level of pain today 4 (0-10) Pain scale - at its 0 best (0-10) Pain scale - at its 8 worst (0-10) Lumbopelvic Eval Posture Lumbar Spine Posture Increased Lordosis Standing Position Assistive device Assistive Devices Straight Cane Gait Observation General Gait Pattern Wide Based Gait Observation Palapation tenderness bilateral lumbar spinal Yes: L3-L5 tenderness buttock tenderness Yes: L piriformis, glute med/min Lumbar/Sacral Tenderness Palpation Findings Lumbar/Sacral 2/4 TTP Palpation Overall Comment Accessory Movement L3 bilateral L4 bilateral L5 bilateral Range of Motion Lumbar Spine Active 70 Flexion Range of Motion (degrees) Lumbar Spine Active 10 Extension Range of Motion (degrees) Left Lumbar Spine 5 Lateral Flexion Active Range of Motion (degrees) Right Lumbar Spine 10 Lateral Flexion Active Range of Motion (degrees) Manual Muscle Test Right Knee Extension 5 Normal Strength Grade Knee Flexion 5 Normal Strength Grade Hip Flexion Strength 4 Good Grade Hip Abduction 4- Good- Strength Grade Hip Adduction 4 Good Strength Grade Hip Extension 4- Good- Strength Grade Ankle Dorsiflexion 5 Normal Strength Grade Left Knee Extension 5 Normal Strength Grade Knee Flexion 5 Normal Strength Grade Hip Flexion Strength 4- Good- Grade Hip Abduction 3+ Fair+ Strength Grade Hip Adduction 4- Good- Strength Grade Hip Extension 3+ Fair+ Strength Grade Ankle Dorsiflexion 5 Normal Strength Grade Altered Sensation Bilateral Comment equal and intact to light touch sensation bilaterally Special Tests Hip Adis (COMFORT) Negative Left,Negative Right Test Sciatic Nerve Negative Left,Negative Right Tension Test Unilateral Straight Negative Right,Positive Left Leg Raise (Lasegue) Test Hip/Knee Eval ROM left Hip External 45 Rotation Active Range of Motion ( degrees) Hip Internal 25 Rotation Active Range of Motion ( degrees) Balance Eval Timed Up and Go Test 1. Is the Timed Up yes and Go test result > or = to 12 seconds? [place]berg Feet Together/Eyes pass open/Stable Surface Feet Together/Eyes fail Closed/Stable Surface Feet Together/Eyes fail open/Unstable Surface Feet Together/Eyes fail Closed/Unstable Surface Oswestry Index Section 1 Pain Intensity The pain comes and goes and is severe Section 2 Personal Care ( my way of washing or dressing even though it causes Washing,Dresing) some pain Section 3 Lifting I can only lift very light weights at most Section 4 Walking I cannot walk more than 1/4 mile without increasing pain Section 5 Sitting I can sit in any chair for as long as I like Section 6 Standing I cannot stand more than 10 minutes without increasing pain Section 7 Sleeping I get pain in bed, but it does not prevent me from sleeping well Section 8 Social Life My social life is normal but increases the degree of pain Section 9 Traveling I get extra pain while traveling, but it does not compel me to seek al Section 10 Changing Degreee of My pain is neither getting better or worse Pain Score and Risk Level Oswestry Sc 25 Oswestry Risk Level Severe Disability Outpatient Therapy Assessment Impairments Problems/ Palpation Tenderness,Impaired Range of Motion,Impaired Impairmments Strength,Impaired Walking,Impaired Standing,Impaired Lifting,Impaired Household Care,Impaired Stair Climbing ,Impaired Incline Stepping,Impaired Stepping on Uneven Surface,Impaired Squatting,Impaired Bending,Impaired Balance,Subjective C/O Pain,Impaired Self Care/Self Management Prognosis Rehab Potential Good Clinical Impression Consistent with Yes Diagnosis Short Term Goals Number of Weeks 3 Decrease Subjective Yes: Improve pain at worst to 6/10 to improve overall C/O Pain QOL Improve Self Care/ Yes Self Management Patient to be Ind w/ Yes HEP Residential Goals Number of Weeks 6 Increase Range of Yes: Improve lumbar AROM flex to 80, ext to 15, LF to Motion 15 Increase Strength Yes: Improve LE MMT to 4-4+/5 grossly to assist with function Improve Gait Pattern Yes: improved gait mechanics with LRD to dec fall risk with Assistive Device Improve Balance Yes: Improve TUG to 12 or less to decrease fall risk Improve Oswestry Yes: Imrove score to 20 or less to improve overall QOL Score Decrease Subjective Yes: Improve pain at worst to 4/10 to improve overall C/O Pain QOL Outpatient Therapy Plan of Care Treatment Plan May Include Therapeutic Exercise Yes Including Home Exercise Program Manual Therapy Yes Techniques Neuromuscular Re- Yes education Therapeutic Yes Activities to Return to Previous Functional/Work Level Gait Training Yes ADL/Self Care Yes Education Mechanical Traction Yes Dry Needling Yes Thermal Modalities Yes Electrical Yes Stimulation Ultrasound/ Yes Phonophoresis Iontophoresis Yes Massage Yes Group Therapy for Yes Medicare Eval/Re-Eval Yes Frequency Times per week 2 Duration Number of Weeks 4-6 Addendums This patient is a No candidate for social or vocational rehab ? Patient/Guardian Yes verbally acknowledges understanding of treatment program and consents to further treatment? Patient/Guardian Yes verbally acknowledges understanding of diagnosis, prognosis and goals for treatment? Eval Complexity PT Charges 61530 - Moderate Complexity Shoulder/Elbow Eval Shoulder Objective Measurements Elbow Objective Measurements PHYSICIAN CERTIFICATION: I certify the specified therapy services for Flora Flo Dayron are required, authorized, and reviewed every 30 days.
== END 2025-05-09 23:59 | disposition home or self-care (01) ==
LOC: PT 08:00
PROVIDERS: PCP Nurse Practitioner Family; Visit Provider Internal Medicine Adolescent Medicine
DX: M48.07 Spinal stenosis, lumbosacral region (principal); M15.9 Polyosteoarthritis, unspecified
CPT/HCPCS: 97014; 97110; 97162; G0283

== ENCOUNTER 2025-05-30 08:00 | Outpatient (RCR) | payer MEDICARE, BC, SELFPAY ==
--- NOTE | 2025-05-23 11:03 | HMH.RHREAS ---
Rehab Reassessment Rehab OP Re-assessment Start: 05/21/25 08:02 Freq: Status: Active Protocol: Document 05/23/25 07:56 HARITHAAJAY (Rec: 05/23/25 11:02 JUAN MIGUEL [id number]) E-signed By Maria Isabel Samuels, PT Oswestry Index Section 1 Pain Intensity The pain comes and goes and is moderate Section 2 Personal Care ( my way of washing or dressing even though it causes Washing,Dresing) some pain Section 3 Lifting I can only lift very light weights at most Section 4 Walking I cannot walk at all without increasing pain Section 5 Sitting I can sit in my favorite chair for as long as I like Section 6 Standing I cannot stand more than 1/2 hour without increasing pain Section 7 Sleeping I get pain in bed, but it does not prevent me from sleeping well Section 8 Social Life My social life is normal but increases the degree of pain Section 9 Traveling I get some pain when traveling, but none of my usual forms of travel m Section 10 Changing Degreee of My pain fluctuates, but overall is definitely getting Pain better Score and Risk Level Oswestry Sc 21 Oswestry Risk Level Moderate Disability Rehab Re-assessment Subjective Subjective Pt reports she feels 50% improved since starting PT. Pt reports left posterior hip pain that refers into the left leg to the knee described as dull, denies paresthesia. Pt reports pain at worst as 4/10 on VAS. Pt reports pain is worse in the morning time and with walking. Pt reports compliance with HEP. Objective Objective Notes Palpation: 2/4 TTP of L piriformis mm, lateral border of sacrum, greater trochanter, and ischial tuberosity Lumbar AROM: flex 80, ext 15, LF 15 LLE MMT: hip flex 4/5, hip abd 4-/5, hip add 4-/5, hip ext 4-/5, knee flex 4/5, knee ext 5/5 Gait: wide based gait with lateral sway and R hip drop with use of SPC on R side Assessment Progress Assessment Progressing as Expected Assessment Notes Pt has attended 5 PT treatment sessions consisting of a lumbar flexion based program, lumbar mobility, hip/ core strengthening, neural glides, manual therapy, modalities and HEP with good tolerance. Pt demonstrated improved subjective report of pain, MANINDER score, lumbar AROM, and LE MMT since the initial evaluation. Pt continues to demonstrate intermittent LLE pain, LE strength deficits and altered gait mechanics/balance. Overall, the pt would continue to benefit from skilled PT to further improve subjective report of pain, LE MMT , gait, balance and functional activity tolerance to improve overall QOL. Patient goals met ST/3 LT/6 Goals Not Met MMT, improved gait, TUG, MANINDER Revised Goals n/a Plan Plan Continue POC Frequency of Therapy 2x/week Duration of therapy 4 more weeks Time and Billing Re-Eval Time 11 Re-Eval Billing 0 Units Charge for PT No reassessment? Charge for OT No reassessment? PHYSICIAN CERTIFICATION: I certify the specified therapy services for Flora Padgett are required, authorized, and reviewed every 30 days.
== END 2025-05-30 23:59 | disposition home or self-care (01) ==
LOC: PT 08:00
PROVIDERS: PCP Nurse Practitioner Family; Visit Provider Internal Medicine Adolescent Medicine
DX: M48.07 Spinal stenosis, lumbosacral region (principal); M15.9 Polyosteoarthritis, unspecified
CPT/HCPCS: 97014; 97110; 97140; 97530; G0283

== ENCOUNTER 2025-06-28 10:20 | Outpatient (CLI) | payer MEDICARE, BC, SELFPAY ==
[2025-06-28 14:30] LABS: Coronavirus 19, PCR Not Detected (NotDetected); Influenza A, PCR Not Detected (NotDetected); Influenza B, PCR Not Detected (NotDetected)
--- OUTSIDE RECORDS SUMMARY | 2025-07-02 10:23 | XMS_ITS | Clinical Summary ---
Author Organization [facility] Address [address] [place] [address] Care Team Providers Care Player Development Manager Name Role Phone Emilia Multani ERASMO Primary Care Provid er Allergies Active Allergy Reactions Criticality Noted Date Comments Latex Hives,Swelling Medium 09/30/2017 Nitrofurantoin Macrocrystal Swelling High 09/30/20 17 Swelling of face and tongue. Medications ALPRAZolam (XANAX) 0.5 MG tablet Take 0.5 mg by mouth As Needed for Anxiety. Active atenolol (TENORMIN) 50 MG tablet Take 50 mg by mouth 2 (two) times a day. Active furosemide (LASIX) 20 MG tablet Take 20 mg by mouth Daily. Active omeprazole (priLOSEC) 20 MG capsule Take 20 mg by mouth Daily. Active cholecalciferol (VITAMIN D3) 1000 units tablet Take 2,000 Units by mouth Daily. Active B Complex Vitamins (VITAMIN-B COMPLEX PO) Take 1 tablet by mouth Daily. Active allopurinol (ZYLOPRIM) 100 MG tablet Take 100 mg by mouth Daily. Active rosuvastatin (CRESTOR) 10 MG tablet Take 10 mg by mouth Every Night. 0 Active losartan-hydroc hlorothiazide (HYZAAR) 100-25 MG per tablet Take 1 tablet by mouth. Active celecoxib (CeleBREX) 200 MG capsule Take 1 capsule by mouth Daily. Must take an hour after aspirin if needed. 0 Active aspirin 81 MG chewable tablet Chew 1 tablet Daily. Resume in 1 month 0 Active Ropivacine HCl-NaCl (NAROPIN)Indica tions:Acute Pain 20 mg/hr by Peripheral Nerve route Continuous. Indications: Acute Pain 0 Active docusate sodium (Colace) 100 MG capsule Take 1 capsule by mouth 2 (Two) Times a Day. 60 capsule 05/28/2020 1:44 PM EDT 0 Active escitalopram (LEXAPRO) 10 MG tablet 1 Active Active Problems Problem Noted Date Diagnosed Date Acute postoperative pain 05/28/2020 S/P total knee replacement, right 05/27/2020 HTN (hypertension) 05/27/2020 Hyperlipidemia 05/27/2020 Obesity (BMI 30-39.9) 05/27/2020 GERD (gastroesophageal reflux disease) 0 Prediabetes 05/27/2020 Primary osteoarthritis of right knee 04/29/2020 Overview (04/29/2020): Added automatically from request for surgery [id number] Degenerative arthritis of right knee 04/28/2020 Aftercare following surgery of the musculoskelet al system 10/10/2017 Joint arthrodesis status 10/10/2017 Family History Medical History Relation Name Comments Cancer Father Hypertension Father Cancer Mother Diabetes Mother Hypertension Mother Osteoarthritis Mother Rheum arthritis Mother Rheum arthritis Other 1 child Diabetes Other 2 grandparent Hypertension Other 2 grandparent Osteoarthritis Other 2 grandparent Relation Name Status Comments Father Mother Other 1 child Other 2 grandparent Social History Tobacco Use Types Packs/Day Years Used Date Smoking Tobacco: Never Smokeless Tobacco: Never Alcohol Use Standard Drinks/Week Comments No 0 (1 standard drink = 0.6 oz pur e alcohol) Abuse Screen Answer Date Recorded Unsafe at Home or Work/School Not on file Feels Threatened by Someone? Not on file 07/2023 Does Anyone Keep You from Co ntacting Others or Doint Things Outside the Home? Not on file 08/22/2023 Physical Sign of Abuse Present Not on file 1 Housing Stability Answer Date Recorded Current Living Arrangements Not on file 07/2023 Potentially Unsafe Housing Conditions Not on kimberly e 08/22/2023 Family and Community Support Answer Dong e Recorded Help with Day-to-Day Activities Not on file 08/22/2023 Lonely or Isolated Not on file 08/22/2023 Employment Answer Date Recorded Do you want help finding or keeping work or a savannah b? Not on file 08/22/2023 Disabilities Answer Date Recorded Concentrating, Remembering, or Making Decisions Difficulty Not on file 08/22/2023 Doing Errands Independently Difficulty Not on fi le 08/22/2023 Education Answer Date Recorded Help with school or training? Not on file Preferred Language Not on file 08/22/2023 Comments No Sex and Gender Information Value Date Recorded Sex Assigned at Not on file Legal Sex Female 12:37 PM EDT Gender Identity Not on file Sexual Orientation Not on file Last Filed Vital Signs Vital Sign Reading Time Taken Comments Blood Pressure 154/71 05/27/2021 10:35 AM EDT Pulse 68 05/27/2021 10:35 AM EDT Temperature 37.2 C (99 F) 05/28/2020 8:57 AM EDT Respiratory Rate 18 05/28/2020 8:57 AM EDT Oxygen Saturation 96% 05/28/2020 3:34 AM EDT Inhaled Oxygen Concentration - - Weight 109 kg (239 lb 9.6 oz) 05/27/2021 10:35 A M EDT Height 162.6 cm (5' 4.02 ) 05/27/2021 10:35 AM E DT Body Mass Index 41.11 05/27/2021 10:35 AM EDT Plan of Treatment Health Maintenance Due Date Last Done Comments DXA SCAN 1942 LIPID PANEL 1942 TDAP/TD VACCINES (1 - Tdap) 1961 COLOGUARD 1987 COLON CANCER SCREENING 5 YEA R SIGMOIDOSCOPY 1987 COLONOSCOPY [address] CANCER SCREENING 1987 CT COLONOGRAPHY 1987 FECAL OCCULT BLOOD TEST 1987 FIT Testing (1 year) 1987 ZOSTER VACCINE (2 of 3) 04/20/2017 02/23/2017 RSV Vaccine - Adults (1 - 1- dose 75+ series) 2017 ANNUAL PHYSICAL 09/30/2017 Pneumococcal Vaccine 50+ (2 of 2 - PPSV23) 11/16/2018 11/16/2017 COVID-19 Vaccine (3 - season) 07/15/202401/2021, 12/17/2020 INFLUENZA VACCINE 08/14/2025 08/20/2020, , 10/02/2018 Medical Devices Implanted Type Area Photogrammetric Stereo Compiler Device Identifier Shelf Expiration Date Model / Serial / Lot Pat Gen2 Resrf 32mm - [id number] Implanted:Qty : 1 on 05/27/2020 by Syed Hoffman MD at [facility] Implant Right: Knee [employer] 01/27/2030 [id number] / / [id number] Insrt Art Legion Ps Hf Xlpe Sz3to4 10mm - [id number] Implanted:Qty : 1 on 05/27/2020 by Syde Hoffman MD at [facility] Implant Right: Knee [employer]W 12/10/2029 [id number] / / [id number] Totl Kn Blane Robledo Nephew - [id number] Implanted:Qty : 1 on 05/27/2020 by Syed Hoffman MD at [facility] Implant Right: Knee [employer]W CAPKNEETOTAL SN2 / / Cmt Bone Simplex/P Full Dose 10/Pk - [id number] Implanted:Qty : 1 on 05/27/2020 by Syed Hoffman MD at [facility] Implant Right: Knee ENZO ALE 01/11/2022 [id number] / / [id number] Cmt Bone Simplex/P Full Dose 10/Pk - [id number] Implanted:Qty : 1 on 05/27/2020 by Syed Hoffman MD at [facility] Implant Right: Knee ENZO ALE 01/11/2022 [id number] / / [id number] Sut Contrl Tiss Stratafix Symm Pds Plus Doretha Ct-1 45cm - [id number] Implanted:Qty : 1 on 05/27/2020 by Syed Hoffman MD at [facility] Implant Right: Knee ETHICON DIV OF J AND J [id number] / / Sut Contrl Tiss Stratafix Spiral Mncryl Ud 3/0 Pls 60cm - [id number] Implanted:Qty : 1 on 05/27/2020 by Syed Hoffman MD at [facility] Implant Right: Knee ETHICON ENDO SURGERY DIV OF J AND J [id number] / / [id number] Legion Oxin Ps Nrw Sz6n Rt - [id number] Implanted:Qty : 1 on 05/27/2020 by Syed Hoffman MD at [facility] Implant Right: Knee [employer] 03/30/2030 [id number] / / [id number] Base Tib/Kn Gen2 Nonpor Ti Sz4 Rt - [id number] Implanted:Qty : 1 on 05/27/2020 by Syed Hoffman MD at [facility] Implant Right: Knee [employer] 07/10/2029 [id number] / / [id number] Hip Hardware Knee Hardware Ankle Hardware Insurance [facility] Direct[facility] Documents on File Type Date Recorded 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 [address] [facility] [address] [place] [address] PCP - General Family Medicine 05/13/20
== END 2025-06-28 23:59 | disposition home or self-care (01) ==
LOC: LAB.DROPOF 07-02 10:21
PROVIDERS: PCP Nurse Practitioner Family; Visit Provider Nurse Practitioner Family
DX: J06.9 Acute upper respiratory infection, unspecified (principal)
CPT/HCPCS: 87636